=== PATIENT | male | born 1970 | race Caucasian/White ===

== ENCOUNTER 2020-10-02 12:05 | Emergency (ER) | payer SELFPAY ==
--- NOTE | 2020-10-02 12:28 | ER Document Report ---
ED Oral Problem - General Chief Complaint: Toothache Stated Complaint: TOOTH PAIN Time Seen by Provider: 10/02/20 12:26 Primary Care Provider: [facility] [Provider Group] - Follow up as needed [facility] [Provider Group] - Follow up as needed - HPI Notes: 49-year-old male presents to ED for evaluation of right upper posterior dental pain for the last 2 days. Notes that he relocated to this area and does not have a dentist that he sees. Notes that he has pain with chewing. Denies chest pain, shortness of breath, fever, chills, nausea, vomiting, history of heart murmur, trouble swallowing or opening the mouth.Has taken ibuprofen with some improvement. - Related Data Allergies/Adverse Reactions: No Known Allergies Allergy (Verified 10/02/20 12:27) Past Medical History - Social History Smoking Status: Current Every Day Smoker Family History: None - Medical History Medical History: Negative - Past Medical History Cardiac Medical History: Reports: None Review of Systems - Review of Systems Notes: Constitutional: Negative for fever. HENT: Negative for sore throat. + for dental pain. Eyes: Negative for visual changes. Cardiovascular: Negative for chest pain. Respiratory: Negative for shortness of breath. Gastrointestinal: Negative for abdominal pain, vomiting or diarrhea. Genitourinary: Negative for dysuria. Musculoskeletal: Negative for back pain. Skin: Negative for rash. Neurological: Negative for headaches, weakness or numbness. 10 point ROS negative except as marked above and in HPI. Physical Exam - Vital signs Vitals: Temp Pulse Resp BP Pulse Ox 98.4 F 64 16 180/107 H 97 10/02/20 12:17 10/02/20 12:17 10/02/20 12:17 10/02/20 12:17 10/02/20 12:17 General appearance: No acute distress. Awake, alert and oriented x3 Skin: Intact. No pallor or jaundice. HEENT: Symmetric, no facial swelling. Eyes pupils equal, round and reactive to light and accommodation. Extraoccular movements are intact. TMs without erythema or bulging. Dentition is poor. Significant decay and pain is noted to tooth#1 and 2. Erythema and edema about the gumline. No fluctuance or drainage about the gumline. No trismus noted. Pharynx without erythema, edema, or exudates. No tonsillar enlargement. Uvula is midline. Airway is patent. Neck: Symmetric without swelling. No lymphadenopathy or masses. Negative Satya sign. Lungs: Clear to auscultation bilaterally. No wheezes, rhonchi or rales. Neurologic: CN II-XII intact. GCS 15. Course - Re-evaluation Re-evalutation: 10/02/20 12:39 49-year-old Male presents to ED for evaluation of dental pain for the last 2 days. Has taken ibuprofen at home with minimal improvement. Patient is found to have tenderness to the dentition and erythema and edema about the gumline. There was no obvious abscess to be drained. There was no evidence of deep space infection. The patient did not have any fever or chills. Patient most likely has a dental abscess. Patient will be started on Penicillin VK and viscous lidocaine with tordol. Patient was advised to avoid driving, operating heavy machinery, or drinking alcohol when taking narotic pain medication. Patient was found to be hypertensive upon arrival however this did improve mildly with pain management. However we will also start low dose lisinopril HCTZ. Patient will also follow up with PCP for further management. Patient is given a list of dentistry for followup. Patient understands indications to return to the ER. Patient is agreeable with this plan. 10/02/20 13:40 - Vital Signs Vital signs: Temp Pulse Resp BP Pulse Ox 98.4 F 60 16 171/107 H 98 10/02/20 12:45 10/02/20 12:45 10/02/20 12:17 10/02/20 12:45 10/02/20 12:45 - Laboratory Results Critical Laboratory Results Reviewed: No Critical Results - Radiology Results Critical Radiology Results Reviewed: No Critical Results Discharge - Discharge Clinical Impression: Infected dental carries, Dental abscess Condition: Stable Disposition: HOME, SELF-CARE Instructions: Penicillin V K ([facility]), Toothache ([facility]) Prescriptions: Ketorolac Tromethamine [Toradol 10 mg Tablet] 10 mg PO Q8HP PRN #15 tablet PRN Reason: Lisinopril/Hydrochlorothiazide [Lisinopril-Hctz 10-12.5 mg Tab] 1 each PO DAILY #30 tablet Penicillin V Potassium [Penicillin Vk 500 mg Tablet] 500 mg PO BID #20 tablet Referrals: [facility] [Provider Group] - Follow up as needed [facility] [Provider Group] - Follow up as needed
[2020-10-02] MEDS ORDERED: LIDOCAINE 2% VISCOUS SOLN 15 ML UDCUP PO ONE (12:29)
[2020-10-02] MEDS ORDERED: KETOROLAC TROMETHAMINE 60 MG/2 ML SDV IM ONE (13:06)
[2020-10-02 13:40] VITALS: BP 170/107
== END 2020-10-02 13:46 | disposition home or self-care (01) ==
LOC: ER 12:05
DX: K04.7 Periapical abscess without sinus (principal); K08.9 Disorder of teeth and supporting structures, unspecified; F17.200 Nicotine dependence, unspecified, uncomplicated
CPT/HCPCS: 99284; 96372; J1885; J3490